=== PATIENT | female | born 1970 | race Caucasian/White ===

== ENCOUNTER 2018-11-13 21:30 | Emergency (ER) | payer OTHER ==
[~2018-11-13] VITALS: Ht 160 cm; Wt 72.0 kg
[2018-11-13] MEDS ORDERED: normal saline 1000ML IV soln IVB STA (22:49)
[2018-11-13] MEDS ORDERED: methylPREDNISolone sod succ 125mg/2ml vial IV ONE (22:50)
[2018-11-13] MEDS ORDERED: famotidine/PF 10 mg/ml inj IV ONE (22:50)
[2018-11-13] MEDS ORDERED: normal saline 1000ML IV soln IVB ONE (23:25)
[2018-11-14] MEDS ORDERED: PRED20TA PO (00:25)
[2018-11-14] MEDS ORDERED: DIPH25CA83 PO (00:25)
[2018-11-14] MEDS ORDERED: EPIN0.3P3 IM (00:28)
[2018-11-14 00:43] VITALS: BP 123/65
== END 2018-11-14 00:44 | disposition home or self-care (01) ==
LOC: ER 21:33
DX: T63.441A Toxic effect of venom of bees, accidental (unintentional), initial encounter (principal); R06.02 Shortness of breath; Z88.2 Allergy status to sulfonamides; Z79.899 Other long term (current) drug therapy; Y92.89 Other specified places as the place of occurrence of the external cause
CPT/HCPCS: 96374; 96375; 99283; J2930; J3490; J7030